=== PATIENT | female | born 1995 | race African-American/Black ===

== ENCOUNTER 2017-07-30 22:08 | Emergency (ER) | payer BC ==
[2017-07-30] MEDS ORDERED: Ondansetron ODT TAB* 4 MG PO ONE (22:46)
[2017-07-30] MEDS ORDERED: NS 0.9% 1000 ML* 1,000 ML IV ONE ×2 (23:03→23:05)
[2017-07-30] MEDS ORDERED: Ondansetron INJ* 2 MG/ML VIAL IV ONE (23:06)
[2017-07-30] MEDS ORDERED: Ondansetron ODT TAB* 4 MG ONE (23:13)
[2017-07-30 23:38] LABS: ABS Basophils 0 10^3/ul (0-0.2); ABS Eosinophils 0 10^3/ul (0-0.6); ABS Lymphocytes 0.9 10^3/ul (1.0-4.8); ABS Monocytes 0.3 10^3/ul (0-0.8); ABS Neutrophils 6.5 10^3/ul (1.5-7.7); ABS Nucleated RBC 0 10^3/ul; Eosinophil % 0.3 % (0-6); Hematocrit 41 % (35-47); Hemoglobin 13.3 g/dl (12.0-16.0); Mean Corpuscular HGB Conc 33 g/dl (31-36); Mean Corpuscular Hemoglobin 25 pg (27-31); Mean Corpuscular Volume 78 fL (80-97); Mean Platelet Volume 8.2 um3 (7.4-10.4); Nucleated Red Blood Cells % 0; Platelet Count 296 10^3/ul (150-450); Red Blood Count 5.22 10^6/ul (4.0-5.4); Red Cell Distribution Width 16 % (10.5-15); White Blood Count 7.8 10^3/ul (3.5-10.8)
[2017-07-30 23:50] LABS: EGFR Non-African American 107.4 (>60)
[2017-07-30] MEDS ORDERED: Potassium Chlor TAB* 20 MEQ TAB.ER PO ONE (23:59)
--- NOTE | 2017-07-31 00:03 | ED ---
Substance Abuse/Use - HPI Summary HPI Summary: Patient is a 22-year-old female who presents emergency department for nausea and vomiting after drinking alcohol earlier this afternoon. Patient states she is visiting her friend who goes to [employer]. Patient states she stopped drinking around noon but has continued to have vomiting and nausea. She states she is unable to keep down any liquids. She also notes feeling shaky. Past medical history of high blood pressure. Patient states she is not taking her blood pressure medication over the last several days because she "forgets." She otherwise denies any drug use today. Denies any falls or injuries today. Symptoms are moderate in severity. No current modifying factors. - History Of Current Complaint Chief Complaint: EDNauseaVomitDiarrh Stated Complaint: VOMITING/ETOH Time Seen by Provider: 07/30/17 22:25 Hx Obtained From: Patient, Family/Grinder Tender - Allergies/Home Medications Allergies/Adverse Reactions: Allergies Allergy/AdvReac Type Severity Reaction Status Date / Time No Known Allergies Allergy Verified 07/30/17 22:14 Home Medications: Home Medications Hydrochlorothiazide 25 mg PO DAILY 07/31/17 [History Confirmed 07/31/17] PMH/Surg Hx/FS Hx/Imm Hx Previously Healthy: Yes Infectious Disease History: No Infectious Disease History: Denies: Traveled Outside the [place] in Last 30 Days - Social History Occupation: Student Lives: Dormitory/Roommates Alcohol Use: Occasionally Alcohol Amount: once monthly Substance Use Type: Reports: Marijuana Substance Use Comment - Amount & Last Used: daily Smoking Status (MU): Never Smoked Tobacco Review of Systems Constitutional: Negative Negative: Fever, Chills Eyes: Negative ENT: Negative Cardiovascular: Negative Respiratory: Negative Positive: Vomiting, Nausea. Negative: Diarrhea Genitourinary: Negative Positive: Other - muscle cramps Skin: Negative Neurological: Negative All Other Systems Reviewed And Are Negative: Yes Physical Exam Triage Information Reviewed: Yes Vital Signs On Initial Exam: Initial Vitals Temp Pulse Resp BP Pulse Ox 98.1 F 89 16 158/120 99 07/30/17 22:12 07/30/17 22:12 07/30/17 22:12 07/30/17 22:12 07/30/17 22:12 Vital Signs Reviewed: Yes Appearance: Positive: Pain Distress - Pain lying on bed, appears uncomfortable but nontoxic. Friend present. Skin: Positive: Warm, Dry Head/Face: Positive: Normal Head/Face Inspection Eyes: Positive: Normal, YESENIA Neck: Positive: Supple Respiratory/Lung Sounds: Positive: Clear to Auscultation, Breath Sounds Present Cardiovascular: Positive: Normal, RRR Abdomen Description: Positive: Nontender, Soft Neurological: Positive: Normal, CN Intact II-III Psychiatric: Positive: Normal Diagnostics - Vital Signs Vital Signs Temp Pulse Resp BP Pulse Ox 07/30/17 23:24 73 156/98 98 07/30/17 23:00 88 100 07/30/17 22:54 78 155/99 100 07/30/17 22:53 84 100 07/30/17 22:12 98.1 F 89 16 158/120 99 - Laboratory Lab Results: Lab Results 07/30/17 07/30/17 Range/Units 23:22 23:24 WBC 7.8 (3.5-10.8) 10^3/ul RBC 5.22 (4.0-5.4) 10^6/ul Hgb 13.3 (12.0-16.0) g/dl Hct 41 (35-47) % MCV 78 L (80-97) fL MCH 25 L (27-31) pg MCHC 33 (31-36) g/dl RDW 16 H (10.5-15) % Plt Count 296 (150-450) 10^3/ul MPV 8.2 (7.4-10.4) um3 Neut % (Auto) 83.8 H (38-83) % Lymph % (Auto) 12.0 L (25-47) % Darke % (Auto) 3.5 (0-7) % Eos % (Auto) 0.3 (0-6) % Baso % (Auto) 0.4 (0-2) % Absolute Neuts (auto) 6.5 (1.5-7.7) 10^3/ul Absolute Lymphs (auto) 0.9 L (1.0-4.8) 10^3/ul Absolute Monos (auto) 0.3 (0-0.8) 10^3/ul Absolute Eos (auto) 0 (0-0.6) 10^3/ul Absolute Basos (auto) 0 (0-0.2) 10^3/ul Absolute Nucleated RBC 0 10^3/ul Nucleated RBC % 0 Sodium 141 (139-145) mmol/L Potassium 3.2 L (3.5-5.0) mmol/L Chloride 102 (101-111) mmol/L Carbon Dioxide 27 (22-32) mmol/L Anion Gap 12 H (2-11) mmol/L BUN 8 (6-24) mg/dL Creatinine 0.69 (0.51-0.95) mg/dL Est GFR ( Amer) 138.1 (>60) Est GFR (Non-Af Amer) 107.4 (>60) BUN/Creatinine Ratio 11.6 (8-20) Glucose 110 H (70-100) mg/dL Calcium 9.6 (8.6-10.3) mg/dL Magnesium Pending Serum Alcohol < 10 (<10) mg/dL Result Diagrams: 07/30/17 23:22 07/30/17 23:24 Lab Statement: Any lab studies that have been ordered have been reviewed, and results considered in the medical decision making process. Course/Dx - Course Course Of Treatment: Patient presenting for nausea and vomiting after alcohol consumption earlier today. Pt. was given IV fluids and will check basic labs. Zofran given. Labs are unremarkable other than mildly low potassium, 40 mg is ordered. On reexamination patient is resting comfortably and she is feeling better. She is tolerating oral fluids and has had no vomiting in the emergency department. Results were discussed. Patient's blood pressure has been consistently high in the ER. Patient states she is returning home tomorrow. I strongly advised her to take her blood pressure medication when she returns home as directed. To avoid alcohol consumption. To increase fluids. Return to the ER symptoms change or worsen. Patient is discharged home stable with her friend. - Diagnoses Provider Diagnoses: Alcohol abuse, Hypokalemia, Nausea & vomiting Discharge - Sign-Out/Discharge Documenting (check all that apply): Discharge/Admit/Transfer - Discharge Plan Condition: Good Disposition: HOME Patient Education Materials: Alcohol Use Disorder (ED) Referrals: No Primary Care Phys,NOPCP [Primary Care Provider] - Additional Instructions: Take your blood medication when you return home as directed Avoid alcohol consumption Increase fluids Return to the ER if symptoms change or worsen - Billing Disposition and Condition Condition: GOOD Disposition: HOME
[2017-07-31 01:30] VITALS: BP 153/99
== END 2017-07-31 02:02 | disposition home or self-care (01) ==
LOC: ED 22:08
DX: F10.10 Alcohol abuse, uncomplicated (principal); E87.6 Hypokalemia; R11.2 Nausea with vomiting, unspecified
CPT/HCPCS: 36415; 80048; 80320; 83735; 85025; 96360; 96361; 96374; 99282; A9270-GY; G0480